=== PATIENT | female | born 1960 | race American Indian/Alaskan Native ===

== ENCOUNTER 2018-03-04 18:21 | Emergency (ER) | payer BC ==
[2018-03-04 18:32] VITALS: BP 154/92
--- NOTE | 2018-03-04 18:57 | EDM.PDOC ---
ED HPI GENERAL MEDICAL PROBLEM - General Chief Complaint: Genitourinary Problem Stated Complaint: BLADDER INFECTION Time Seen by Provider: 03/04/18 18:56 Source of Information: Reports: Patient History Limitations: Reports: No Limitations - History of Present Illness INITIAL COMMENTS - FREE TEXT/NARRATIVE: hurts to void thinks could be bladder infection. Pelvic Pain Score (Numeric/FACES): 7 - Related Data Allergies Allergy/AdvReac Type Severity Reaction Status Date / Time No Known Allergies Allergy Unverified 05/05/15 23:40 Home Meds: Home Meds Aspirin [Aspirin EC] 81 mg PO DAILY 02/18/14 [History] Ramipril [Altace] 2.5 mg PO DAILY 02/18/14 [History] Simvastatin [Zocor] 20 mg PO BEDTIME 02/18/14 [History] Isosorbide Mononitrate [Imdur] 30 mg PO DAILY 10/19/14 [History] Metoprolol Tartrate [Lopressor] 25 mg PO BID 10/19/14 [History] Past Medical History HEENT History: Reports: None Cardiovascular History: Reports: CAD Respiratory History: Reports: None Gastrointestinal History: Reports: None ENVIRONMENTAL COMPLIANCE SPECIALIST History: Reports: None Musculoskeletal History: Reports: Arthritis Neurological History: Reports: None Psychiatric History: Reports: None Endocrine/Metabolic History: Reports: None Hematologic History: Reports: None Immunologic History: Reports: None Oncologic (Cancer) History: Reports: None Dermatologic History: Reports: None - Infectious Disease History Infectious Disease History: Reports: None - Past Surgical History Head Surgeries/Procedures: Reports: None Female Surgical History: Reports: Hysterectomy, Other (See Below) Other Female Surgeries/Procedures: donated left kidney Social & Family History - Family History Family Medical History: Noncontributory - Tobacco Use Smoking Status *Q: Former Smoker Used Tobacco, but Quit: Yes Month/Year Tobacco Last Used: 1996 - Caffeine Use Caffeine Use: Reports: Coffee - Recreational Drug Use Recreational Drug Use: No ED ROS GENERAL - Review of Systems Review Of Systems: ROS reveals no pertinent complaints other than HPI. ED EXAM, RENAL/ - Physical Exam Exam: See Below Exam Limited By: No Limitations General Appearance: Alert, WD/WN, Mild Distress, Other (discomfort) Ears: Hearing Grossly Normal Throat/Mouth: Normal Voice, No Airway Compromise Head: Atraumatic Neck: Non-Tender, Full Range of Motion Respiratory/Chest: No Respiratory Distress Cardiovascular: Regular Rate, Rhythm GI/Abdominal: Soft, Tender, Other (suprapubic discomfort). No: Distended, Guarding, Rigid, Rebound Neurological: Alert, Oriented, Normal Cognition, Normal Gait, No Motor/Sensory Deficits Psychiatric: Normal Affect, Normal Mood Skin Exam: Warm, Dry, Normal Color Lymphatic: No Adenopathy Course - Vital Signs Last Recorded V/S: Last Vital Signs Temp 36.4 C 03/04/18 18:31 Pulse 100 03/04/18 18:31 Resp 18 03/04/18 18:31 BP 154/92 H 03/04/18 18:31 Pulse Ox 95 03/04/18 18:31 - Orders/Labs/Meds Orders: Active Orders 24 hr Category Date Time Status Phenazopyridine [Urinary Pain Relief] Med 03/04/18 18:59 Once 95 mg PO ONETIME ONE Sulfamethoxazole/Trimethoprim [Septra DS] Med 03/04/18 18:59 Once 1 tab PO ONETIME ONE Labs: Laboratory Tests 03/04/18 Range/Units 18:24 Urine Color Yellow (YELLOW) Urine Appearance Clear (CLEAR) Urine pH 6.0 (5.0-9.0) Ur Specific [place] 1.025 (1.005-1.030) Urine Protein Negative (NEGATIVE) Urine Glucose (UA) Negative (NEGATIVE) Urine Ketones Negative (NEGATIVE) Urine Occult Blood Negative (NEGATIVE) Urine Nitrite Negative (NEGATIVE) Urine Bilirubin Negative (NEGATIVE) Urine Urobilinogen 0.2 (0.2-1.0) mg/dL Ur Leukocyte Esterase Negative (NEGATIVE) - Re-Assessments/Exams Free Text/Narrative Re-Assessment/Exam: 03/04/18 19:00 results discussed with pt. Departure - Departure Time of Disposition: 19:01 Disposition: Home, Self-Care 01 Condition: Good Clinical Impression: UTI, Urinary tract infectious disease, Dysuria - Discharge Information Instructions: Urinary Tract Infection, Adult, [id number] Forms: ED Department Discharge Additional Instructions: 1) rest 2) drink lots of liquids, try cranberry juice 3) recheck if not better in 48 hours, sooner if feels worse rx given; bactrim DS bid x 20 pyridium 100mg tid prn x 12 - My Orders Last 24 Hours: My Active Orders 03/04/18 18:59 Phenazopyridine [Urinary Pain Relief] 95 mg PO ONETIME ONE Sulfamethoxazole/Trimethoprim [Septra DS] 1 tab PO ONETIME ONE - Assessment/Plan Last 24 Hours: My Active Orders 03/04/18 18:59 Phenazopyridine [Urinary Pain Relief] 95 mg PO ONETIME ONE Sulfamethoxazole/Trimethoprim [Septra DS] 1 tab PO ONETIME ONE
[2018-03-04] MEDS ORDERED: Sulfamethoxazole/Trimethoprim 800-160 MG Tab PO ONE (18:59)
[2018-03-04] MEDS ORDERED: Phenazopyridine 95 MG Tab PO ONE (18:59)
== END 2018-03-04 19:14 | disposition home or self-care (01) ==
LOC: DL.ED 18:21
DX: N39.0 Urinary tract infection, site not specified (principal); I25.10 Atherosclerotic heart disease of native coronary artery without angina pectoris; Z87.891 Personal history of nicotine dependence; Z79.82 Long term (current) use of aspirin; Z79.899 Other long term (current) drug therapy
CPT/HCPCS: 81003; 99283; A9270

== ENCOUNTER 2021-01-15 06:02 | Day surgery (SDC) | payer BC ==
[~2021-01-15 06:02] MED LIST: Dextrose 5%-0.45% NaCl 1,000 ML IV SCH; Midazolam 1 MG/ML 2 ML SDV ONE; Sodium Chloride 0.9% 10 ML Syringe FLUSH PRN; fentaNYL 100 MCG/2 ML SDV ONE
[2021-01-15] MEDS ORDERED: Midazolam 1 MG/ML 2 ML SDV IV ONE ×7 (06:03→07:19)
[2021-01-15] MEDS ORDERED: fentaNYL 100 MCG/2 ML SDV IV ONE ×5 (06:03→07:21)
--- NOTE | 2021-01-15 08:40 | OR ---
DATE: 01/15/2021 PROCEDURE: Total colonoscopy. INSTRUMENT USED: PCF-H190DL Olympus video colonoscope. PREMEDICATION: Fentanyl 150 mcg intravenous, Versed 4 mg intravenous. Nasal O2 cannula. The procedure was done under pulse oximetry, BP recording, and bus monitor. INDICATION: Screening colonoscopic examination is done for detection of any polypoid lesions and removal, endoscopic hemostasis therapy if needed. DESCRIPTION OF PROCEDURE: Initial rectal exam was unremarkable. Rigid anoscopy was normal. The colonoscope was passed with ease. Few scattered diverticula were noted in the distal left colon along with deformity. The scope was passed with ease up to the ileocecal area. Photographs were taken of the normal- appearing cecum identified by landmarks of appendiceal orifice and double-bulged ileocecal folds. No bleeding was noted from any of the visualized areas at the commencement of examination. The bowel preparation was found to be adequate, [place] scale 3 in right and transverse colon, 2 in left colon, total score 8. No stricture. No vascular ectasia. No large isolated ulcerations seen. No evidence of diffuse inflammatory bowel disease in the form of friability, contact bleeding, or ulcerations. No polyp or tumor mass identified. Second look on the right colon was done. Probing the proximal sides of folds and flexures using adequate distention and clearing up the stool material, withdrawal of the scope was made, cecum to rectum time more than 9 minutes. No bleeding was noted from any of the visualized areas at the completion of the examination. IMPRESSION: Diverticulosis. The patient tolerated the procedure well. [facility] /[id number]
--- NOTE | 2021-01-15 09:17 | LETTER ---
01/15/2021 RE: CLARICE MCKEON : 1960 Salty Ervin MD. [facility] [address] [place] [address] Ervin: Ms. Clarice Mckeon had colonoscopic examination done this morning and she tolerated the procedure well. I herewith send a copy of the endoscopy note and photographs for your review. Thank you. Sincerely, [facility] /[id number]
[2021-01-15] MEDS ORDERED: Dextrose 5%-0.45% NaCl 1,000 ML IV SCH (09:45)
[2021-01-15 10:46] VITALS: BP 106/85; PULSE 62
== END 2021-01-15 09:41 | disposition home or self-care (01) ==
LOC: DL.ENDO 06:02
PROVIDERS: ATTEND Internal Medicine Gastroenterology
DX: Z12.11 Encounter for screening for malignant neoplasm of colon (principal); K57.30 Diverticulosis of large intestine without perforation or abscess without bleeding
CPT/HCPCS: J2250; J3010; J7042

== ENCOUNTER 2023-06-28 09:10 | Day surgery (SDC) | payer BC, OTHER ==
[2023-06-28] MEDS ORDERED: Acetaminophen/Codeine 300-30 MG Tab PO PRN (09:15)
[2023-06-28] MEDS ORDERED: Sodium Chloride 0.9% 10 ML Syringe FLUSH PRN (09:15)
[2023-06-28] MEDS ORDERED: Ondansetron 4 MG/2 ML SDV IVPUSH PRN (09:15)
[2023-06-28] MEDS ORDERED: Acetaminophen 325 MG Tab PO PRN (09:15)
[2023-06-28] MEDS: Proparacaine 0.5% Ophth Soln 15 ML Bottle EYELF ONE ×2 (09:45→10:21)
[2023-06-28] MEDS: Povidone-Iodine 5% Sterile Ophth Soln 30 ML Bottle EYELF ONE ×2 (09:46→10:22)
[2023-06-28] MEDS: Moxifloxacin 0.5% Ophth Soln 3 ML Bottle EYELF ONE (09:47)
[2023-06-28] MEDS: Tropicamide 1% Ophth Soln 15 ML Bottle EYELF ONE (09:48)
[2023-06-28] MEDS: Phenylephrine 10% Ophth Soln 5 ML Bot EYELF ONE (09:48)
[2023-06-28] MEDS: Timolol Maleate 0.5% Ophth Soln 5 ML Bottle EYELF ONE (09:48)
[2023-06-28] MEDS: Cataract Ophth Solution EYELF ONE (09:49)
[2023-06-28] MEDS: Lidocaine 1% 30 ML SDV ONE (10:21)
[2023-06-28] MEDS: Diclofenac Sodium 0.1% Ophth Soln 5 ML Bottle EYELF ONE (10:22)
[2023-06-28] MEDS: Apraclonidine 0.5% Ophth Soln 5 ML Bot EYELF ONE (10:22)
[2023-06-28] MEDS: Dexamethasone/Neomycin/Polymyxin B Ophth Oint 3.5 GM Tube EYELF ONE (10:22)
[2023-06-28] MEDS: Vancomycin 500 MG SDV EYELF ONE (10:22)
[2023-06-28 11:12] VITALS: BP 119/85; PULSE 83
== END 2023-06-28 11:05 | disposition home or self-care (01) ==
LOC: DL.SDS 09:10
PROVIDERS: ATTEND Ophthalmology
DX: E11.36 Type 2 diabetes mellitus with diabetic cataract (principal); H25.812 Combined forms of age-related cataract, left eye; I12.9 Hypertensive chronic kidney disease with stage 1 through stage 4 chronic kidney disease, or unspecified chronic kidney disease; E11.22 Type 2 diabetes mellitus with diabetic chronic kidney disease; N18.9 Chronic kidney disease, unspecified; K21.9 Gastro-esophageal reflux disease without esophagitis; E78.5 Hyperlipidemia, unspecified; I25.10 Atherosclerotic heart disease of native coronary artery without angina pectoris; Z79.82 Long term (current) use of aspirin; Z79.899 Other long term (current) drug therapy
CPT/HCPCS: A9270-GY; J3370; J3490; V2632

== ENCOUNTER 2023-07-19 09:17 | Day surgery (SDC) | payer BC, OTHER ==
[~2023-07-19 09:17] MED LIST changes: +Acetaminophen 325 MG Tab PO PRN; +Acetaminophen/Codeine 300-30 MG Tab PO PRN; -Dextrose 5%-0.45% NaCl 1,000 ML IV SCH; -Midazolam 1 MG/ML 2 ML SDV ONE; +Ondansetron 4 MG/2 ML SDV IVPUSH PRN; -Sodium Chloride 0.9% 10 ML Syringe FLUSH PRN; -fentaNYL 100 MCG/2 ML SDV ONE
[2023-07-19] MEDS: Sodium Chloride 0.9% 10 ML Syringe FLUSH PRN (09:37)
[2023-07-19] MEDS: Moxifloxacin 0.5% Ophth Soln 3 ML Bottle EYERT ONE (09:38)
[2023-07-19] MEDS: Proparacaine 0.5% Ophth Soln 15 ML Bottle EYERT ONE ×2 (09:38→10:58)
[2023-07-19] MEDS: Phenylephrine 10% Ophth Soln 5 ML Bot EYERT ONE (09:39)
[2023-07-19] MEDS: Povidone-Iodine 5% Sterile Ophth Soln 30 ML Bottle EYERT ONE ×2 (09:40→10:59)
[2023-07-19] MEDS: Tropicamide 1% Ophth Soln 15 ML Bottle EYERT ONE (09:41)
[2023-07-19] MEDS: Cataract Ophth Solution EYERT ONE (09:41)
[2023-07-19] MEDS: Timolol Maleate 0.5% Ophth Soln 5 ML Bottle EYERT ONE (09:41)
[2023-07-19 09:50] VITALS: BP 110/74; PULSE 81
[2023-07-19] MEDS: Vancomycin 500 MG SDV EYERT ONE (11:07)
[2023-07-19] MEDS: Lidocaine 1% 30 ML SDV ONE (11:07)
[2023-07-19] MEDS: Diclofenac Sodium 0.1% Ophth Soln 5 ML Bottle EYERT ONE ×2 (11:08→11:11)
[2023-07-19] MEDS: Apraclonidine 0.5% Ophth Soln 5 ML Bot EYERT ONE ×2 (11:08→11:11)
[2023-07-19] MEDS: Dexamethasone/Neomycin/Polymyxin B Ophth Oint 3.5 GM Tube EYERT ONE ×2 (11:08→11:11)
== END 2023-07-19 11:40 | disposition home or self-care (01) ==
LOC: DL.SDS 09:17
PROVIDERS: ATTEND Ophthalmology
DX: E11.36 Type 2 diabetes mellitus with diabetic cataract (principal); H25.811 Combined forms of age-related cataract, right eye; I12.9 Hypertensive chronic kidney disease with stage 1 through stage 4 chronic kidney disease, or unspecified chronic kidney disease; E11.22 Type 2 diabetes mellitus with diabetic chronic kidney disease; N18.31 Chronic kidney disease, stage 3a; I25.10 Atherosclerotic heart disease of native coronary artery without angina pectoris; E78.5 Hyperlipidemia, unspecified; K21.9 Gastro-esophageal reflux disease without esophagitis; E66.9 Obesity, unspecified; Z79.82 Long term (current) use of aspirin; Z79.899 Other long term (current) drug therapy
CPT/HCPCS: 66984; A9270; J3370; V2632; J3490